=== PATIENT | male | born 1970 | race Hispanic/Latino ===

== ENCOUNTER → 2019-04-23 | Outpatient (CLI) | payer OTHER ==
--- NOTE | 2019-04-23 13:37 | Diagnostic Imaging Report ---
Abdomen, 1 view. History: Renal pelvis. Findings: Calcifications are projected over the left kidney measuring 8 and 10 mm. A left internal ureteral double-J stent is present extending from the region of the left renal pelvis to the bladder. Calcified phleboliths are noted within the pelvis. Air is scattered throughout nondilated small and large bowel. There are no masses. The osseous structures are intact. IMPRESSION: Left renal calculi and internal ureteral stent as described above. Signed by: Jorge Dave on 04/23/2019 1:34 PM
== END ==
LOC: EDBD → RAD 12:43
PROVIDERS: ATTEND Urology
DX: N20.0 Calculus of kidney (principal)
CPT/HCPCS: 74018

== ENCOUNTER → 2019-06-04 | Outpatient (CLI) | payer OTHER ==
--- NOTE | 2019-06-04 10:35 | Diagnostic Imaging Report ---
Abdomen, 1 view. History: Renal calculus. Comparison: 04/23/2019. Findings: Left internal ureteral stent is unchanged in position. Air is scattered throughout nondilated small and large bowel. There are no masses or abnormal calcifications. The osseous structures are intact. IMPRESSION: No visible renal calculi. Signed by: Jorge Dave on 06/04/2019 10:32 AM
== END ==
LOC: RAD 09:21 → EDBD 09:21
PROVIDERS: ATTEND Urology
DX: N20.0 Calculus of kidney (principal)
CPT/HCPCS: 74018

== ENCOUNTER → 2020-08-02 | Outpatient (CLI) | payer OTHER ==
--- NOTE | 2020-08-02 10:53 | Diagnostic Imaging Report ---
EXAM: ABDOMEN-1VIEW ([facility]) DATE: 08/02/2020 10:25 AM INDICATION: Calculus of kidney COMPARISON: 07/23/2019 FINDINGS: The previously visualized left ureteral stent is no longer present. No radiographically evident renal calculi are appreciated. Stable appearing phleboliths noted within the pelvis. Bowel gas pattern is nonobstructive. No acute osseous abnormality is identified. IMPRESSION: No radiographically evident renal calculi identified. Signed by: Dr. Hernandez Eddy MD on 08/02/2020 10:49 AM
== END ==
LOC: RAD 10:10
PROVIDERS: ATTEND Urology
DX: N20.0 Calculus of kidney (principal)
CPT/HCPCS: 74018

== ENCOUNTER → 2021-10-26 | Outpatient (CLI) | payer OTHER | LOC: RAD 11:00 | PROVIDERS: ATTEND Urology | DX: N20.0 Calculus of kidney (principal) | CPT/HCPCS: 74018 ==